=== PATIENT | male | born 1965 | race Caucasian/White ===

== ENCOUNTER → 2021-08-22 09:15 | Outpatient (POV) | payer MEDICARE, SELFPAY ==
[2021-08-22 09:49] VITALS: BP 161/73; PULSE 82; RESP 18; O2SAT 96; BMI 27.2
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
== END ==
PROVIDERS: Visit Provider Clinical Nurse Specialist Family Health
DX: M54.2 Cervicalgia (principal); M25.559 Pain in unspecified hip; G89.29 Other chronic pain
CPT/HCPCS: 99202; G0463

== ENCOUNTER → 2021-08-26 14:57 | Outpatient (CLI) | payer MEDICARE, SELFPAY ==
--- NOTE | 2021-08-26 15:03 | MR_ITS ---
PROCEDURE INFORMATION: Exam: MR Cervical Spine Without Contrast Exam date and time: 08/26/2021 3:03 PM Age: 56 years old Clinical indication: Neck pain; Additional info: Neck pain. RT arm pain. HX neck FX xyrs ago. No prior. TECHNIQUE: Imaging protocol: Multiplanar magnetic resonance images of the cervical spine without contrast. COMPARISON: CR XR ORBIT BILATERAL MIN 4V 08/26/2021 3:21 PM FINDINGS: Vertebrae: Vertebral body heights and alignment are within normal limits. Marrow signal is age appropriate. There is multilevel degenerative disc disease and degenerative endplate change. There is no evidence of cord compression. No intrinsic signal abnormalities are identified in the cervical spinal cord itself. Spinal cord: See Vertebrae finding. C2-C3: No significant disc disease. No significant spinal stenosis. C3-C4: There is a broad-based disc osteophyte complex and mild bilateral uncovertebral osteophyte formation. This results in mild central canal stenosis. The neural foramina are adequate. C4-C5: There is a broad-based disc osteophyte complex and bilateral uncovertebral osteophyte formation. This results in mild to moderate spinal stenosis. There is mild right and moderate left neural foraminal stenosis. C5-C6: There is a broad-based disc osteophyte complex and bilateral uncovertebral osteophyte formation. This results in effacement of the ventral thecal sac and mild flattening of the spinal cord at this level. Overall, there is moderate spinal stenosis. The neural foramina are adequate. C6-C7: There is a broad-based disc osteophyte complex and bilateral uncovertebral osteophyte formation. This results in mild contouring of the ventral aspect of the spinal cord and [id number] spinal stenosis. There is moderate left neural foraminal stenosis. The right neural foramen is adequate. C7-T1: No significant disc disease. No significant spinal stenosis. Soft tissues: Unremarkable. Vertebral arteries: Expected flow voids in the vertebral arteries. IMPRESSION: 1. Multilevel cervical spondylosis. 2. Moderate spinal stenosis at C5/6. Rbno-uh-[id number] spinal stenosis at C4/5 and C6/7. Mild spinal stenosis at C3/4. 3. Multilevel neural foraminal stenosis. Please see above for detail.
--- NOTE | 2021-08-26 15:14 | XR_ITS ---
PROCEDURE: XR ORBIT BILATERAL MIN 4V CLINICAL INDICATION: RULE OUT METAL FOREIGN BODY FOR MRI COMPARISON: No exams were available for comparison TECHNIQUE: AP views are obtained of the orbits with the patient looking up and down. FINDINGS: No radio opaque foreign bodies evident. IMPRESSION: No radio opaque orbital foreign body identified. Dictated by: Bhupinder Gama MD 08/26/2021 15:30 Bhupinder Gama MD in [place] 08/26/2021 15:30
--- NOTE | 2021-08-26 15:20 | XR_ITS ---
PROCEDURE: XR CHEST AP CLINICAL HISTORY: R/O CARDIAC WIRES FOR MRI COMPARISON: No exams were available for comparison FINDINGS: The cardiomediastinal silhouette and pulmonary vascularity are within normal limits. The lungs are clear without infiltrates, suspicious nodules, or pleural effusions. No residual pacemaker wires apparent. No acute bony abnormalities. IMPRESSION: No acute findings. Dictated by: Bhupinder Gama MD 08/26/2021 15:33 Bhupinder Gama MD in [place] 08/26/2021 15:33
== END ==
PROVIDERS: Visit Provider Clinical Nurse Specialist Family Health
DX: M54.2 Cervicalgia (principal); H05.53 Retained (old) foreign body following penetrating wound of bilateral orbits
CPT/HCPCS: 70200; 71045; 72141; 76376

== ENCOUNTER → 2021-09-05 10:14 | Outpatient (POV) | payer MEDICARE, SELFPAY ==
[2021-09-05 10:37] VITALS: BP 119/72; PULSE 82; RESP 18; O2SAT 99; BMI 23.7
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
== END ==
PROVIDERS: Visit Provider Clinical Nurse Specialist Family Health
DX: M50.10 Cervical disc disorder with radiculopathy, unspecified cervical region (principal); M48.00 Spinal stenosis, site unspecified; M54.16 Radiculopathy, lumbar region
CPT/HCPCS: 99212; G0463

== ENCOUNTER → 2021-09-26 14:22 | Outpatient (CLI) | payer MEDICARE, SELFPAY ==
--- NOTE | 2021-09-26 14:25 | MR_ITS ---
FINAL REPORT CLINICAL HISTORY: BACK PAIN. LBP WITH LT HIP PAIN. LEG NUMBNESS AND TINGLING IN LT LEG. SYMPTOMS XYRS. FINDINGS: Multiplanar MR imaging of the lumbar spine was performed without contrast. On the sagittal T2-weighted images, disc degeneration is seen at several levels. There are several hemangiomas. The vertebral alignment is normal. There is no evidence of fracture. No bony mass is identified. The conus is seen at approximately the L1 level and has an unremarkable appearance. T12-L1: There is no significant central canal stenosis or neuroforaminal narrowing. L1-2: There is an annular disc bulge without significant canal stenosis or neural foraminal narrowing. L2-3: There is an annular disc bulge without significant canal stenosis or neural foraminal narrowing. L3-4: There is an annular disc bulge with mild bilateral neuroforaminal narrowing. L4-5: There is annular disc bulge with posterior midline annular tear and small central disc protrusion. There is mild bilateral neuroforaminal narrowing. L5-S1: There is an annular disc bulge with small right paracentral disc protrusion. There is mild right and moderate left neuroforaminal narrowing. IMPRESSION: Multilevel degenerative disc disease with disc protrusions at L4-5 and L5-S1 and mild to moderate neuroforaminal narrowing. Reviewed, Interpreted and Dictated by Dhiraj Moise III, MD Transcribed by Karley Clements Authenticated by Dhiraj Moise III, MD on 09/26/2021 04:18:23 PM [facility]
== END ==
LOC: RAD 14:22
PROVIDERS: Visit Provider Clinical Nurse Specialist Family Health
DX: M54.50 Low back pain, unspecified (principal)
CPT/HCPCS: 72148; 76376

== ENCOUNTER → 2021-10-10 10:59 | Outpatient (POV) | payer MEDICARE, SELFPAY ==
[2021-10-10 11:24] VITALS: BP 133/63; PULSE 82; RESP 18; O2SAT 99; BMI 25.6
--- NOTE | 2021-10-10 11:48 | HMH.PAINSOAP ---
[facility] Pain Management SOAP Note Subjective:: Patient is a pleasant 56-year-old comes in today for follow-up. Patient is currently being treated for degenerative disc disease cervical spine with cervical radiculopathy symptoms, spinal stenosis of the cervical spine, low back pain with lumbar radiculopathy symptoms. Currently, patient is being managed with gabapentin 800 mg 4 times a day and tramadol 50 mg twice a day that is prescribed at this clinic. Patient denies any side effects from these medications. He says the gabapentin is helping him the most. He wants to continue trying tramadol at this time. Last time we saw this patient, we ordered a Lumbar MRI. His lumbar MRI shows, multilevel degenerative disc disease with disc protrusions at L4-L5 and mild to moderate neuroforaminal narrowing. Patient describes his pain as originating from the lumbar spine and radiates to bilateral lower extremities. Pain is worse with prolonged activity. Patient says that he's had injections two years ago that caused him to have knots on his back. Due to this, he is not willing to try injections again. Additionally, patient says that he had two pacemakers placed in the past, however, he ended up with MRSA. They had to take out his pacemakers. He does not want to try implants at this time. I discussed with the patient that we are limited to what we can do for him. He has an appointment with Neurosurgery next month. He rates his pain as 7/10. His Christian number is [phone] with an active morphine equivalent of 10. Review of Systems General: No recent weight changes, no fever, no sleep disturbances Respiratory: No cough, no shortness of air, no recurring pulmonary infections Cardiovascular/peripheral vascular: No chest pain, no palpitations, no edema, no shortness of breath Gastrointestinal: No new onset incontinence, normal bowel movements reported Genitourinary: No new onset incontinence Musculoskeletal: Neck pain, low back pain Psychiatric: [Normal mood/affect] Neurological: [Denies weakness in extremities], [denies balance issues] Objective:: Physical exam General: Alert and oriented x3, no acute distress, pleasant and cooperative Lungs: Respirations even and unlabored, symmetrical chest expansion Eyes: PERRL Musculoskeletal: Flexion and extension of cervical and lumbar [spine] somewhat guarded secondary to pain Neurological: Speech clear, no gross sensory deficit Assessment:: Degenerative disc disease of the cervical and lumbar spine with cervical and lumbar radiculopathy symptoms. Spinal stenosis of the cervical spine Plan:: According to the patient, he developed knots around his back after receiving epidural injections two years ago that was done by Danika Salguero. 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 Patient is not wanting to try injections and implants at this time. Patient has an appt with Neurosurgery next month. I discussed with the patient to see what neurosurgery can offer him since we are very limited to what we can do for him. Patient would like to continue trying his tramadol. We will provide the patient with another month of refill on his tramadol. Patient still has another refill on his gabapentin. Patient has been instructed to contact the clinic with any concerns before the next appointment. Dr. Bocanegra has reviewed this note and agrees with this plan of care. This note was dictated using voice recognition software and make contain errors or omissions. [facility] History *Have you ever received a pneumonia vaccine?: No *Have you received a flu vaccine this season?: Yes - *Social History Smoking Status: Current every day smoker Alcohol Intake: current *Occupational Status:: unemployed *Travel in the last 8 weeks: None Family Hx:: No significant family history
== END ==
PROVIDERS: Visit Provider Clinical Nurse Specialist Family Health
DX: M50.10 Cervical disc disorder with radiculopathy, unspecified cervical region (principal); M48.02 Spinal stenosis, cervical region
CPT/HCPCS: 99212; G0463

== ENCOUNTER → 2021-11-28 11:06 | Outpatient (POV) | payer MEDICARE, SELFPAY ==
[2021-11-28 11:14] VITALS: BP 128/62; PULSE 64; RESP 20; TEMP 37.2; O2SAT 96; BMI 26.1
--- NOTE | 2021-11-28 12:22 | HMH.PAINSOAP ---
[facility] Pain Management SOAP Note Subjective:: This patient is a very pleasant 56-year-old male who comes today to our clinic for follow-up. Patient is currently being treated for degenerative disc disease multilevel cervical spine with cervical radiculopathy symptoms. Also, spinal stenosis cervical spine. Also, low back pain with lumbar radicular symptoms. Patient is currently being managed with gabapentin 800 mg 4 times daily and tramadol 50 mg twice daily. Patient denies any side effects from these medication. However, patient is asking for something stronger due to the fact that tramadol does not seem to be helping. I informed the patient we would increase him to tramadol 50 mg 3 times daily. Patient has recently had consult at the [facility] neurosurgery center. This was due to his hand pain bilaterally. Patient reports they offer no recommendations other than referring him to rheumatoid arthritis clinic [facility]. He is awaiting that appointment at this time. Discussed further injection options in his low back. Epidural steroid injections versus facet blocks lumbar spine. Patient not really interested in any further injections. Objective:: Patient is awake alert oriented x3. In no acute distress. Flexion and extension lumbar spine is somewhat guarded secondary to pain. Flexion and extension of the cervical spine is also guarded secondary to pain. Patient reports having bilateral hand pain worsening at night. Motor strength upper and lower extremities normal. Deep tendon reflexes upper lower extremities normal. There is no acute distress. Assessment:: Degenerative disc disease lumbar spine multilevels. Lumbar radiculopathy symptoms. Cervical degenerative disc disease with cervical radiculopathy symptoms. Cervical spinal stenosis. Plan:: Discussed in detail with the patient regarding medications. Again, he is asking for something stronger. I informed the patient we would not be doing that. However, I will increase his tramadol from twice daily to 3 times daily. Patient will return in 1 month for follow-up. [facility] History *Have you ever received a pneumonia vaccine?: Yes *Have you received a flu vaccine this season?: Yes - *Social History Smoking Status: Current every day smoker Alcohol Intake: current *Occupational Status:: other *Travel in the last 8 weeks: None Family Hx:: No significant family history
== END ==
PROVIDERS: Visit Provider Nurse Anesthetist, Certified Registered
DX: M51.16 Intervertebral disc disorders with radiculopathy, lumbar region (principal); M50.10 Cervical disc disorder with radiculopathy, unspecified cervical region; M48.02 Spinal stenosis, cervical region
CPT/HCPCS: 99212; G0463

== ENCOUNTER → 2022-03-06 14:05 | Outpatient (POV) | payer MEDICARE, SELFPAY ==
[2022-03-06 14:26] VITALS: BP 142/79; PULSE 94; RESP 20; TEMP 37.3; O2SAT 97; BMI 25.0
--- NOTE | 2022-03-06 14:51 | P.CONS_ITS ---
[facility] Pain Management SOAP Note Subjective:: Patient is a pleasant 56-year-old male who presents today for medication refill. Patient is current being treated for degenerative disc disease of the cervical spine with cervical radiculopathy symptoms, spinal stenosis of cervical spine, chronic low back pain with lumbar radiculopathy symptoms. We are currently managing this patient with Gabapentin 800mg QID and Tramadol 50mg TID. Denies any side effects from these medications. He states that the gabapentin is helping his pain significantly but the tramadol is not helping at all. He has asked us multiple times for a stronger dose of medication. He was previously seeing Quinton Huffman in [place] who was prescribing him Percocet 10mg TID. His PCP, Dr. Fu, does not want to continue his medications. We have discussed injective therapy with this patient but he does not want to move forward with any injective therapy. He is also not interested in implantable devices because he had two pacemakers in the past that got infected. He is waiting for a call from Rheumatology. Due to Crohn's disease, pt states that he couldn't tolerate taking any NSAIDs. He does take tylenol at times. Christian [phone], MEQ 0. Review of Systems: General: No recent weight changes, no fever, no sleep disturbances Respiratory: No cough, no shortness of air, no recurring pulmonary infections Cardiovascular/peripheral vascular: No chest pain, no palpitations, no edema, no shortness of breath Gastrointestinal: No new onset incontinence, normal bowel movements reported Genitourinary: No new onset incontinence Musculoskeletal: Low back pain, neck pain Psychiatric: [Normal mood/affect] Neurological: [Denies weakness in extremities], [denies balance issues] Objective:: Physical Exam: General: Alert and oriented x3, no acute distress, pleasant and cooperative Lungs: Respirations even and unlabored, symmetrical chest expansion Eyes: PERRL Musculoskeletal: Flexion and extension of cervical and lumbar [spine] somewhat guarded secondary to pain, [antalgic gait noted] Neurological: Speech clear, no gross sensory deficit Assessment:: Degenerative disease of cervical and lumbar spine with cervical lumbar radiculopathy symptoms, cervical spinal stenosis Plan:: We will continue the patient's gabapentin 800 mg 4 times a day. We will discontinue the patient's tramadol because he states that this is not helping his pain at all. We will provide the patient with 3 month worth of refill on his gabapentin. We will follow this patient in 3 months. Patient states that he lives 5 minutes away from our [place] clinic. He wants to be seen there instead. We will continue to manage this patient with oral gabapentin. I discussed with the patient that the highest pain medication we can give him is tramadol. Patient has been instructed to contact the clinic with any concerns before the next appointment. Dr. Bocanegra has reviewed this note and agrees with this plan of care. This note was dictated using voice recognition software and make contain errors or omissions. [facility] History *Have you ever received a pneumonia vaccine?: Yes *Have you received a flu vaccine this season?: Yes - *Social History Smoking Status: Current every day smoker Alcohol Intake: current *Occupational Status:: other *Travel in the last 8 weeks: None Family Hx:: No significant family history
== END ==
PROVIDERS: Visit Provider Student in an Organized Health Care Education/Training Program
DX: M50.10 Cervical disc disorder with radiculopathy, unspecified cervical region (principal); M48.02 Spinal stenosis, cervical region
CPT/HCPCS: 99212; G0463